=== PATIENT | male | born 1970 ===

== ENCOUNTER 2021-12-19 21:35 | Emergency (ER) | payer SELFPAY ==
--- NOTE | ~2021-12-19 | XR_ITS ---
XR shoulder RT min 2V 12/19/2021 21:52 Indication: Right shoulder pain Procedure: 3 views right shoulder Comparison: No prior studies for comparison. Findings: Mild polyarticular osteoarthritis of the right shoulder. There is widening of the cortical clavicular distance measuring 17 mm, consistent with acromioclavicular separation, consistent with ty pe III separation. No fracture is identified. 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 Reviewed, dictated and finalized at location A. 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
[2021-12-19 21:39] VITALS: BP 139/88; PULSE 89; RESP 20; TEMP 36.7; O2SAT 98
--- NOTE | 2021-12-20 00:27 | PC.NURSE ---
pt left exam room 5 prior to being seen by doctor
== END 2021-12-20 00:27 | disposition left against medical advice (07) ==
PROVIDERS: Emergency Provider Emergency Medicine
DX: Z53.21 Procedure and treatment not carried out due to patient leaving prior to being seen by health care provider (principal)
CPT/HCPCS: 73030; 99199

== ENCOUNTER 2021-12-24 17:31 | Emergency (ER) | payer SELFPAY ==
[2021-12-24 17:35] VITALS: BP 118/90; PULSE 95; RESP 18; TEMP 36.2; O2SAT 100
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
== END 2021-12-24 19:13 | disposition home or self-care (01) ==
LOC: ANHED 18:58
PROVIDERS: Emergency Provider Emergency Medicine
DX: S43.101A Unspecified dislocation of right acromioclavicular joint, initial encounter (principal); V13.4XXA Pedal cycle driver injured in collision with car, pick-up truck or van in traffic accident, initial encounter; Y93.55 Activity, bike riding
CPT/HCPCS: 99283; A4565